=== PATIENT | female | born 1950 | race Caucasian/White ===

== ENCOUNTER → 2019-05-19 | Outpatient (CLI) | payer BC, MEDICARE ==
[2014-04-08 11:49] VITALS: BP 139/69
[~2019-05-19] MED LIST: LEVO500T59 PO; METR500T PO; OMEP20CA10 PO; PRAV40TA2 PO; SERT100T8 PO; ZOLP10TA4 PO
--- NOTE | 2019-05-19 12:54 | RESP ---
DATE OF SERVICE: 05/19/2019 PULMONARY FUNCTION TEST ATTENDING PHYSICIAN: Dr. Manish Burkett. Patient's FVC was 2.6, which is 94% predicted, FEV1 2.10, which is 101% predicted. The FEV1/FVC ratio was normal. There were no bronchodilators given. Lung volume showed a total lung capacity of 138% predicted and residual volume of 217% predicted. Diffusion capacity was normal at 89% predicted. IMPRESSION: 1. No evidence of obstructive airway disease. 2. No bronchodilators given. 3. Lung volumes consistent with hyperinflation and air trapping. 4. Normal diffusion capacity. JAYANT NEAL MD DR: GOLDIE/carie JOB#: [id number] / [id number] MANISH Moore MD
== END | disposition home or self-care (01) ==
LOC: PF 07:54
PROVIDERS: ATTEND Internal Medicine
DX: R06.00 Dyspnea, unspecified (principal); Z87.891 Personal history of nicotine dependence
CPT/HCPCS: 94010; 94729